=== PATIENT | female | born 2000 | race Two or more races ===

== ENCOUNTER 2025-06-26 10:46 | Inpatient (IN) | payer OTHER ==
[~2025-06-26] VITALS: Ht 162.6 cm; Wt 63.5 kg
--- NOTE | 2025-06-26 10:49 | NUR ---
SE RECIBE PTE ALERTA Y ORIENTADA X3. REFIERE MOLESTIA PELVICA HACE 3 CANTRELL. SE MIDE SV Y SE UBICA
[2025-06-26] MEDS ORDERED: 0.9 % SODIUM CHLORIDE 1,000 ML IV STA (11:30)
[2025-06-26] MEDS ORDERED: ONDANSETRON HCL 2 MG/ML VIAL IV STA (11:30)
[2025-06-26] MEDS ORDERED: FAMOTIDINE/PF 20 MG/2 ML VIAL IV STA (11:30)
[2025-06-26] MEDS ORDERED: ONDANSETRON HCL 2 MG/ML VIAL ONE (11:52)
[2025-06-26] MEDS ORDERED: FAMOTIDINE/PF 20 MG/2 ML VIAL ONE (11:53)
--- NOTE | 2025-06-26 12:09 | NUR ---
SE EDUCA A PACIENTE SOBRE TRATAMIENTO MEDICO EL CUAL REFIERE ENTENDER, SE REALIZA ANYI DE LABS Y ADMINISTRACION DE MEDICAMENTO YOAV ORDEN MEDICA Y BAJO MEDIDAS ASEPTICAS. AL MOMENTO PENDIENTE REALIZAR ESTUDIO.
[2025-06-26 12:12] LABS: BASO % 0.4 % (0.1-1.2); EOS # 0.09 (0.04-0.54); EOS % 0.8 % (0.7-7.0); LYMPH # 0.82 (1.18-3.74); LYMPH % 7.3 % (19.3-53.1); MEAN PLATELET VOLUME 9.40 fl (9.4-12.4); MONO # 0.50 (0.24-0.82); MONO % 4.5 % (4.7-12.5); NEUT # 9.67 (1.56-6.13); NEUT % 86.5 % (34.0-71.1); RED CELL DISTRIBUTION WIDTH 12.3 % (11.6-14.4)
[2025-06-26 12:21] LABS: ALT/SGPT 33.0 U/L (12-78); AST/SGOT 24.0 U/L (15-37); BILIRUBIN TOTAL 0.51 mg/dL (0.3-1.2); BILIRUBIN,CONJUGATED 0.15 mg/dL (0.0-0.2); BUN CREA RATIO 17.0 (7.0-25.0); CREATININE SERUM 0.58 mg/dL (0.55-1.02); GFR 127.72; GLUCOSE FASTING 101.0 mg/dL (65-100); OSMOLALITY SERUM 279.0 MOSM/KG (275-295)
[2025-06-26 12:43] LABS: INR 1.03
[2025-06-26 13:58] LABS: URINE APPEARANCE Clear; URINE BILIRRUBIN Negative (NEGATIVE); URINE BLOOD Negative; URINE COLOR Yellow; URINE GLUCOSE Negative (NEGATIVE); URINE LEUKOCYTE Negative; URINE NITRATE Negative; URINE PROTEIN Negative (NEGATIVE); URINE UROBILINOGEN 0.2 E.U./dl
[2025-06-26 14:00] LABS: URINE BACTERIA 1262.2 uL (0.0-1933); URINE EPITHELIAL CELLS 22.1 uL (0.0-38.8); URINE RBC 6.4 uL (0.0-20.8); URINE WBC 15.0 uL (0.0-23.2)
[2025-06-26 14:07] LABS: URINE CAST 0.29 uL (0.0-1.40); URINE KETONE 40 (NEGATIVE)
[2025-06-26 17:40] LABS: RH POSITIVE
[2025-06-26] MEDS ORDERED: CEFAZOLIN SODIUM 1,000 MG VIAL ONE (17:40)
[2025-06-26] MEDS ORDERED: SUGAMMADEX SODIUM 200 MG/2 ML VIAL IV ONE (18:16)
[2025-06-26] MEDS ORDERED: MORPHINE SULFATE 4 MG/ML CARTRIDGE IV SCH (21:00)
[2025-06-26 21:13] VITALS: BP 130/79; O2SAT 100
[2025-06-27] MEDS ORDERED: KETOROLAC TROMETHAMINE 60 MG VIAL IM ONE (01:00)
[2025-06-27 02:03] VITALS: BP 124/74
[2025-06-27] MEDS ORDERED: OxyCODONE HCL 5 MG TABLET (ROXICODONE) PO SCH (05:00)
[2025-06-27 06:58] LABS: BASO % 0.3 % (0.1-1.2); EOS # 0.00 (0.04-0.54); EOS % 0.0 % (0.7-7.0); LYMPH # 0.84 (1.18-3.74); LYMPH % 8.7 % (19.3-53.1); MEAN PLATELET VOLUME 9.60 fl (9.4-12.4); MONO # 0.66 (0.24-0.82); MONO % 6.8 % (4.7-12.5); NEUT # 8.10 (1.56-6.13); NEUT % 83.5 % (34.0-71.1); RED CELL DISTRIBUTION WIDTH 12.2 % (11.6-14.4)
[2025-06-27 07:52] VITALS: BP 104/69
[2025-06-27] MEDS ORDERED: DOCUSATE SODIUM 100MG CAP PO SCH (09:00)
[2025-06-27] MEDS ORDERED: SIMETHICONE 125 MG CAPSULE PO SCH (09:00)
[2025-06-27 13:00] VITALS: BP 116/71
[2025-06-27 16:00] VITALS: BP 110/65
[2025-06-28 02:04] VITALS: BP 100/60
[2025-06-28 08:00] VITALS: BP 118/77
== END 2025-06-28 10:35 | disposition home or self-care (01) | DRG 817 ==
LOC: OB/GYN → ER 10:46 → OB/GYN 15:28 → SEC-K 15:28 → OB/GYN 15:37
PROVIDERS: General Practice; ADMIT Obstetrics & Gynecology; ATTEND Obstetrics & Gynecology
PROC: 0UT60ZZ Resection of Left Fallopian Tube, Open Approach (ICD-10-PCS; 2025-06-26)
PROC: BW21YZZ Computerized Tomography (CT Scan) of Abdomen and Pelvis using Other Contrast (ICD-10-PCS; 2025-06-26)
PROC: BW21ZZZ Computerized Tomography (CT Scan) of Abdomen and Pelvis (ICD-10-PCS; 2025-06-26)
PROC: 10D20ZZ Extraction of Products of Conception, Ectopic, Open Approach (ICD-10-PCS; principal; 2025-06-26 22:00)
DX: O00.102 Left tubal pregnancy without intrauterine pregnancy (principal); K66.1 Hemoperitoneum